=== PATIENT | female | born 1985 | race Two or more races ===

== ENCOUNTER 2017-03-14 01:58 | Emergency (ER) | payer OTHER ==
[~2017-03-14] VITALS: Ht 175.3 cm; Wt 83.9 kg
[2017-03-14] MEDS ORDERED: AMOX/CLAVULANATE 875 MG TABLET ONE (02:26)
[2017-03-14] MEDS ORDERED: TDAP [DIPH/PERTUSSIS/TET] 0.5 ML VIAL IM ONE ×2 (02:26→02:30)
[2017-03-14] MEDS ORDERED: AMOX/CLAVULANATE 875 MG TABLET PO ONE (02:30)
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
--- NOTE | 2017-03-14 02:48 | NUR ---
WOUND CARE WAS DONE.
--- NOTE | 2017-03-14 02:55 | NUR ---
Patient discharged to home in stable condition. Written and verbal after care instructions given. Patient verbalizes understanding of instruction. PT RECEIVED THE RX. PT RECEIVED WORKMANS COMP PAPERWORK FROM ADMITTING. PT AMBULATED OUT WITH STEADY GAIT.VSS
[2017-03-14 02:59] VITALS: BP 112/73
== END 2017-03-14 02:55 | disposition home or self-care (01) ==
LOC: ER 02:07
DX: S50.12XA Contusion of left forearm, initial encounter (principal); Y04.1XXA Assault by human bite, initial encounter; Y93.89 Activity, other specified; Y92.89 Other specified places as the place of occurrence of the external cause; Y99.8 Other external cause status
CPT/HCPCS: 90471; 90715; 99283; A4606; Z7610